=== PATIENT | female | born 1965 | race Asian ===

== ENCOUNTER 2021-04-12 19:59 | Emergency (ER) | payer BC ==
[2021-04-12 21:00] LABS: BILIRUBIN,URINE NEGATIVE (NEGATIVE); GLUCOSE, URINE (UA) NEGATIVE (NEGATIVE); KETONES,URINE (UA) NEGATIVE (NEGATIVE); LEUKOCYTE ESTERASE, URINE NEGATIVE (NEGATIVE); NITRITE,URINE NEGATIVE (NEGATIVE); OCCULT BLOOD,URINE TRACE-LYSE (NEGATIVE); PROTEIN,URINE NEGATIVE (NEGATIVE); UROBILINOGEN,URINE 0.2 (NORMAL) E.U./dL (NORMAL)
[2021-04-12 21:05] LABS: CLARITY,URINE CLEAR (CLEAR)
[2021-04-12] MEDS ORDERED: ONDANSETRON ODT 4 MG TABLET TL STA (22:31)
[2021-04-12 23:00] LABS: BASOPHILS % (AUTO) 0.4 %; EOSINOPHILS % (AUTO) 0.3 %; HCT - HEMATOCRIT 40.8 % (37.0-47.0); HGB - HEMOGLOBIN 13.6 g/dL (12.0-16.0); LYMPHOCYTES % (AUTO) 20.5 %; MEAN CORPUSCULAR HGB CONC 33.3 g/dL (32.0-36.0); MEAN PLATELET VOLUME 8.6 fL (7.9-10.8); MONOCYTES # (AUTO) 0.8 10^3/uL (0.0-1.0); MONOCYTES % (AUTO) 8.1 %; NEUTROPHILS # (AUTO) 6.8 10^3/uL (1.5-6.6); NEUTROPHILS % (AUTO) 70.3 %; PLT - PLATELET COUNT 281 10^3/uL (130-450); RED BLOOD COUNT 4.25 10^6/uL (4.20-5.40); RED CELL DISTRIBUTION WIDTH 12.5 % (12.0-15.0); WHITE BLOOD COUNT 9.6 x10^3/uL (4.8-10.8)
--- NOTE | 2021-04-12 23:09 | ED Physician Documentation ---
PD HPI NVD - Stated complaint Stated Complaint: VOMITING,DIZZY - Chief complaint Chief Complaint: Abd Pain - History obtained from History obtained from: Patient - History of Present Illness Timing - onset: Enter time (11:00), Today Timing - details: Gradual onset, Waxing and waning Pain level max: 8 Pain level now: 3 Associated symptoms: Abdominal pain Improved by: Other (no ameliorating factors) Worsened by: Other (PO intake) Similar symptoms before: Has not had sx before Recently seen: Not recently seen - Additonal information Additional information: c/o nausea, vomiting and epigastric burning pain since 11 AM today. she has h/o PUD (has had upper endoscopy), taking PPI on regular (daily) basis without adequate relief. she is tolerating PO Review of Systems Constitutional: denies: Fever, Chills, Sweats Cardiac: reports: Reviewed and negative Respiratory: reports: Reviewed and negative GI: reports: Abdominal Pain, Nausea, Vomiting. denies: Abdominal Swelling, Constipation, Diarrhea, Hematemesis, Bloody / black stool : denies: Dysuria, Frequency, Now EGA PD PAST MEDICAL HISTORY - Past Medical History Past Medical History: Yes GI: Ulcers - Past Surgical History Past Surgical History: No - Present Medications Home Medications: Ambulatory Orders Medication Instructions Recorded Confirmed Ondansetron Odt [Zofran Odt] 4 mg TL Q6H PRN #14 tablet 04/12/21 Sucralfate [Carafate] 1 gm PO ACHS #60 tablet 04/12/21 - Allergies Allergies/Adverse Reactions: Allergies Allergy/AdvReac Type Severity Reaction Status Date / Time No Known Drug Allergies Allergy Verified 04/12/21 20:38 - Social History Does the pt smoke?: No Smoking Status: Never smoker Does the pt drink ETOH?: No Does the pt have substance abuse?: No - POLST Patient has POLST: No PD ED PE NORMAL - Vitals Vital signs reviewed: Yes - General General: Alert and oriented X 3, No acute distress, Well developed/nourished - HEENT HEENT: Moist mucous membranes - Neck Neck: Supple, no meningeal sign - Cardiac Cardiac: RRR, No murmur - Respiratory Respiratory: No respiratory distress, Clear bilaterally - Abdomen Abdomen: Normal bowel sounds, Soft, Non tender, Non distended - Back Back: No CVA TTP - Derm Derm: Normal color, Warm and dry Results - Vitals Vitals: Vital Signs - 24 hr 04/12/21 04/12/21 04/12/21 20:30 22:07 23:38 Temperature 36.0 C L 97.6 C H Heart Rate 60 56 L 58 L Respiratory 18 18 16 Rate Blood Pressure 147/64 H 143/57 H 134/55 H O2 Saturation 98 98 98 Oxygen O2 Source Room air - Labs Labs: Laboratory Tests 04/12/21 04/12/21 04/12/21 20:48 22:52 22:52 WBC 9.6 RBC 4.25 Hgb 13.6 Hct 40.8 MCV 96.0 MCH 32.0 H MCHC 33.3 RDW 12.5 Plt Count 281 MPV 8.6 Neut # (Auto) 6.8 H Lymph # (Auto) 2.0 [place] # (Auto) 0.8 Eos # (Auto) 0.0 Baso # (Auto) 0.0 Absolute Nucleated RBC 0.00 Nucleated RBC % 0.0 Sodium 140 Potassium 3.8 Chloride 108 Carbon Dioxide 23 Anion Gap 9.0 BUN 23 H Creatinine 0.5 Estimated GFR (MDRD) 127 Glucose 145 H Calcium 9.7 Total Bilirubin 1.1 H AST 19 ALT 22 Alkaline Phosphatase 65 Total Protein 8.3 H Albumin 4.6 Globulin 3.7 Albumin/Globulin Ratio 1.2 Lipase 26 Urine Color YELLOW Urine Clarity CLEAR Urine pH 6.0 Ur Specific [place] 1.010 Urine Protein NEGATIVE Urine Glucose (UA) NEGATIVE Urine Ketones NEGATIVE Urine Occult Blood TRACE-LYSE Urine Nitrite NEGATIVE Urine Bilirubin NEGATIVE Urine Urobilinogen 0.2 (NORMAL) Ur Leukocyte Esterase NEGATIVE Ur Microscopic Review NOT INDICATED Urine Culture Comments NOT INDICATED PD MEDICAL DECISION MAKING - ED course Complexity details: reviewed results, re-evaluated patient, considered differential, d/w patient ED course: nausea and vomiting with epigastric burning discomfort but nontender on abdominal exam. afebrile and no findings on blood tests that are of emergent concern. she is given TL zofran and on reevaluation she reports resolution of the nausea. Further emergent testing is not indicated at this time, will rx zofran and add sucralfate to her regimen, instructed to return if worse, follow up with primary care provider next available appointment. suspect PUD vs gastri tis. doubt pancreatitis (no tenderness on exam, normal lipase), biliary colic (I performed bedside US, no abnormality of GB noted on my interpretation), renal colic (midline pain, no lateralized / flank pain). Departure - Departure Disposition: 01 Home, Self Care Clinical Impression: Abdominal pain with vomiting Condition: Good Instructions: ED Abdominal Pain Unkn Cause Prescriptions: Sucralfate [Carafate] 1 gm PO ACHS #60 tablet Ondansetron Odt [Zofran Odt] 4 mg TL Q6H PRN #14 tablet PRN Reason: Nausea / Vomiting Comments: Follow up with your primary care provider for reevaluation; further testing might be necessary at the discretion of your doctor Discharge Date/Time: 04/12/21 23:40
[2021-04-12 23:13] LABS: ALBUMIN 4.6 g/dL (3.2-5.5); ALBUMIN/GLOBULIN RATIO 1.2 (1.0-2.2); BILIRUBIN,TOTAL 1.1 mg/dL (0.2-1.0); CALCIUM 9.7 mg/dL (8.5-10.3); CREATININE 0.5 mg/dL (0.4-1.0); POTASSIUM 3.8 mmol/L (3.5-5.0); TOTAL PROTEIN 8.3 g/dL (6.7-8.2)
[2021-04-12 23:40] VITALS: BP 134/55
== END 2021-04-12 23:40 | disposition home or self-care (01) ==
LOC: ED 19:59
DX: R11.2 Nausea with vomiting, unspecified (principal); R10.13 Epigastric pain
CPT/HCPCS: 36415; 80053; 81003; 83690; 85025; 99283; 99284; Q0162; 81001; 87086

== ENCOUNTER 2021-11-10 10:52 | Emergency (ER) | payer MEDICAID, OTHER ==
[2021-11-10 11:13] LABS: BASOPHILS # (AUTO) 0.1 10^3/uL (0.0-0.1); BASOPHILS % (AUTO) 1.1 %; EOSINOPHILS # (AUTO) 0.4 10^3/uL (0.0-0.7); EOSINOPHILS % (AUTO) 7.4 %; HCT - HEMATOCRIT 40.7 % (37.0-47.0); HGB - HEMOGLOBIN 13.9 g/dL (12.0-16.0); LYMPHOCYTES # (AUTO) 2.2 10^3/uL (1.5-3.5); LYMPHOCYTES % (AUTO) 42.6 %; MEAN CORPUSCULAR HGB CONC 34.2 g/dL (32.0-36.0); MEAN CORPUSCULAR VOLUME 93.8 fL (81.0-99.0); MEAN PLATELET VOLUME 8.8 fL (7.9-10.8); MONOCYTES # (AUTO) 0.6 10^3/uL (0.0-1.0); MONOCYTES % (AUTO) 10.6 %; NEUTROPHILS % (AUTO) 38.1 %; PLT - PLATELET COUNT 258 10^3/uL (130-450); RED BLOOD COUNT 4.34 10^6/uL (4.20-5.40); RED CELL DISTRIBUTION WIDTH 12.3 % (12.0-15.0); WHITE BLOOD COUNT 5.3 x10^3/uL (4.8-10.8)
--- NOTE | 2021-11-10 11:37 | ED Physician Documentation ---
History of Present Illness - Stated complaint Stated Complaint: CHEST PAIN - Chief complaint Chief Complaint: Cardiac - Additonal information Additional information: 56-year-old female presents emergency department for evaluation of chest pain. Reportedly began about 9 days ago. She does report some radiation of this pain to her left arm. She denies any cough, fevers. No nausea or vomiting. Patient endorses that the chest pain can occur at rest such as when she is sitting in the car but it is often exacerbated by activity such as doing grocery shopping or walking. It does improve with rest. Patient does have a history of diabetes as well as hypertension. Last A1c 12.3. Patient takes her Lantus daily but does not check her sugars. No tobacco use. No previous cardiac history. Patient initially presented to an outside clinic this a.m. for her chest pain. While there she received 325 of aspirin and was advised to come to the ER. Review of Systems Constitutional: denies: Fever, Chills Eyes: reports: Reviewed and negative Ears: reports: Reviewed and negative Cardiac: reports: Chest pain / pressure. denies: Palpitations, Pedal edema, Calf pain Respiratory: denies: Dyspnea, Cough, Hemoptysis, Wheezing GI: reports: Nausea. denies: Abdominal Pain, Vomiting, Constipation, Hematemesis : denies: Dysuria, Frequency, Hesitancy Skin: reports: Reviewed and negative Musculoskeletal: reports: Reviewed and negative PD PAST MEDICAL HISTORY - Past Medical History Past Medical History: Yes GI: Ulcers - Past Surgical History Past Surgical History: No - Present Medications Home Medications: Ambulatory Orders Medication Instructions Recorded Confirmed Insulin Aspart [NovoLOG] 18 units SQ TID 11/10/21 11/10/21 Insulin Glargine,Hum.rec.anlog 45 unit SUBQ DAILY PM 11/10/21 11/10/21 [Basaglar Kwikpen U-100] Lisinopril [Zestril] 20 mg PO DAILY 11/10/21 11/10/21 Propranolol [Inderal] 40 mg PO DAILY 11/10/21 11/10/21 Rosuvastatin Calcium [Crestor] 20 mg PO DAILY 11/10/21 11/10/21 - Allergies Allergies/Adverse Reactions: Allergies Allergy/AdvReac Type Severity Reaction Status Date / Time No Known Drug Allergies Allergy Verified 11/10/21 11:05 - Social History Does the pt smoke?: No Smoking Status: Never smoker Does the pt drink ETOH?: No Does the pt have substance abuse?: No - POLST Patient has POLST: No PD ED PE NORMAL - General General: Alert and oriented X 3, No acute distress - HEENT HEENT: PERRL - Neck Neck: Supple, no meningeal sign, No adenopathy - Cardiac Cardiac: RRR, No murmur, No gallop - Respiratory Respiratory: No respiratory distress, Clear bilaterally - Abdomen Abdomen: Normal bowel sounds, Soft, Non tender, Non distended - Derm Derm: Normal color, Warm and dry, No rash - Extremities Extremities: No deformity - Neuro Neuro: Alert and oriented X 3, community relations advisor 2-12 intact Eye Opening: Spontaneous Motor: Obeys Commands Verbal: Oriented GCS Score: 15 Results - Vitals Vitals: Vital Signs - 24 hr 11/10/21 11/10/21 11/10/21 10:56 11:07 13:04 Temperature 36.2 C L Heart Rate 63 58 L 73 Respiratory 16 20 20 Rate Blood Pressure 156/81 H 166/140 H 147/70 H O2 Saturation 99 97 99 11/10/21 11/10/21 11/10/21 15:00 17:00 19:00 Temperature Heart Rate 54 L 66 62 Respiratory 12 24 18 Rate Blood Pressure 130/88 H 137/62 H 126/71 O2 Saturation 97 97 94 Oxygen O2 Source Room air - EKG (time done) 1058 Rate: Rate (enter#) (56) Rhythm: NSR [place]: Normal Intervals: Normal IN QRS: Normal Ischemia: Non specific changes (T wave flattening inferiorly) Compare to prior EKG: Old EKG unavailable Computer interpretation: Agree with computer - Labs Labs: Laboratory Tests 11/10/21 11/10/21 11/10/21 11:02 11:02 11:02 WBC 5.3 RBC 4.34 Hgb 13.9 Hct 40.7 MCV 93.8 MCH 32.0 H MCHC 34.2 RDW 12.3 Plt Count 258 MPV 8.8 Neut # (Auto) 2.0 Lymph # (Auto) 2.2 [place] # (Auto) 0.6 Eos # (Auto) 0.4 Baso # (Auto) 0.1 Absolute Nucleated RBC 0.00 Nucleated RBC % 0.0 APTT Sodium 134 L Potassium 3.9 Chloride 102 Carbon Dioxide 21 Anion Gap 11.0 BUN 17 Creatinine 0.6 Estimated GFR (MDRD) 103 Glucose 287 H Calcium 8.7 Total Bilirubin 0.9 AST 21 ALT 21 Alkaline Phosphatase 99 Troponin I High Sens 7.3 Total Protein 7.7 Albumin 4.2 Globulin 3.5 Albumin/Globulin Ratio 1.2 Lipase 96 H Nasal Adenovirus (PCR) Nasal B. parapertussis DNA (PCR) Nasal Coronavir 229E PCR Nasal Coronavir HKU1 PCR Nasal Coronavir NL63 PCR Nasal Coronavir OC43 PCR Nasal Enterovir/Rhinovir PCR Nasal Influenza B PCR Nasal Influenza A PCR Nasal Parainfluen 1 PCR Nasal Parainfluen 2 PCR Nasal Parainfluen 3 PCR Nasal Parainfluen 4 PCR Nasal RSV (PCR) Nasal B.pertussis DNA PCR Nasal C.pneumoniae (PCR) Johnie Human Metapneumo PCR Nasal M.pneumoniae (PCR) Nasal SARS-CoV-2 (PCR) 11/10/21 11/10/21 16:45 19:02 WBC RBC Hgb Hct MCV MCH MCHC RDW Plt Count MPV Neut # (Auto) Lymph # (Auto) [place] # (Auto) Eos # (Auto) Baso # (Auto) Absolute Nucleated RBC Nucleated RBC % APTT 166.0 H* Sodium Potassium Chloride Carbon Dioxide Anion Gap BUN Creatinine Estimated GFR (MDRD) Glucose Calcium Total Bilirubin AST ALT Alkaline Phosphatase Troponin I High Sens Total Protein Albumin Globulin Albumin/Globulin Ratio Lipase Nasal Adenovirus (PCR) NOT DETECTED Nasal B. parapertussis DNA (PCR) NOT DETECTED Nasal Coronavir 229E PCR NOT DETECTED Nasal Coronavir HKU1 PCR NOT DETECTED Nasal Coronavir NL63 PCR NOT DETECTED Nasal Coronavir OC43 PCR NOT DETECTED Nasal Enterovir/Rhinovir PCR NOT DETECTED Nasal Influenza B PCR NOT DETECTED Nasal Influenza A PCR NOT DETECTED Nasal Parainfluen 1 PCR NOT DETECTED Nasal Parainfluen 2 PCR NOT DETECTED Nasal Parainfluen 3 PCR NOT DETECTED Nasal Parainfluen 4 PCR NOT DETECTED Nasal RSV (PCR) NOT DETECTED Nasal B.pertussis DNA PCR NOT DETECTED Nasal C.pneumoniae (PCR) NOT DETECTED Johnie Human Metapneumo PCR NOT DETECTED Nasal M.pneumoniae (PCR) NOT DETECTED Nasal SARS-CoV-2 (PCR) NOT DETECTED - Rads (name of study) cxr Radiology: Critical result, EMP read contemporaneously (No acute cardiopulmonary process) PD MEDICAL DECISION MAKING - ED course Complexity details: reviewed results, re-evaluated patient, considered differential, d/w patient ED course: 56-year-old female has a history of hypertension, diabetes and hyperlipidemia presents the emergency department for evaluation of 9 days chest pain. She does describe exertional chest pain that improves with rest. She is a poorly controlled diabetic with last A1c of 12.3. She has never established with a accounting system expert. But does not smoke. Here in the emergency department she is noted to be moderately hypertensive blood pressure in the 160s and 170s. Her screening EKG is nonischemic though there is some T wave flattening in the inferior leads. Initial troponin is negative. Chest x-ray without acute focal opacity. However given the nature of her chest pain, multiple risk factors and a heart score of 4 she is at major risk for adverse cardiac event. Hx is suggestive of unstable angina. I will reach out to cardiology to discuss the possibility of transfer for earlier cardiac evaluation/catheterization. 1250: Spoke with on-call accounting system expert Dr. Dick at [facility]. We discussed the patient's clinical presentation and she agrees that the history is consistent with unstable angina in a patient that has multiple risk factors for coronary artery disease. She feels that the patient is not safe for discharge home and should have a cardiac catheterization before this occurs. Patient will be started on a heparin infusion. We have confirmed with [facility] that she is on their list for transfer when a bed is available. I have communicated this with the patient and she is in agreement to transfer for further evaluation of her unstable angina. 1600: I spoke with [facility] unfortunately they are not able to accommodate this patient in transfer. [facility] has no beds. Patient will continue to board here overnight pending bed acceptance likely at [facility]. Patient will be signed out to my nighttime colleague Dr. Escobar to follow-up on transfer when a bed becomes available. She remains on a heparin infusion. Departure - Departure Disposition: 02 Transfer Acute Care Hosp Clinical Impression: Unstable angina
[2021-11-10 11:40] LABS: ALBUMIN 4.2 g/dL (3.2-5.5); ALBUMIN/GLOBULIN RATIO 1.2 (1.0-2.2); BILIRUBIN,TOTAL 0.9 mg/dL (0.2-1.0); CALCIUM 8.7 mg/dL (8.5-10.3); CREATININE 0.6 mg/dL (0.4-1.0); POTASSIUM 3.9 mmol/L (3.5-5.0); TOTAL PROTEIN 7.7 g/dL (6.7-8.2)
--- NOTE | 2021-11-10 12:23 | XRAY Report ---
PROCEDURE: Chest 1 View X-Ray INDICATIONS: Chest pain TECHNIQUE: One view of the chest was acquired. COMPARISON: None. FINDINGS: Surgical changes and devices: None. Lungs and pleura: No pleural effusions or pneumothorax. Lungs are clear. Mediastinum: Mediastinal contours appear normal. Heart size is normal. Bones and chest wall: No suspicious bony lesions. Overlying soft tissues appear unremarkable. IMPRESSION: No acute cardiopulmonary abnormality. Reviewed by: Mike Burrows MD on 11/10/2021 11:22 AM [facility] Approved by: Mike Burrows MD on 11/10/2021 11:22 AM [facility] Station ID: [id number]
[2021-11-10] MEDS ORDERED: HEPARIN 25000UNITS/500ML (D5W) 25,000 UNIT/500 ML BAG IV SCH (13:00)
[2021-11-10] MEDS ORDERED: ATORVASTATIN 40 MG TABLET PO STA (13:02)
[2021-11-10 17:46] LABS: B. PARAPERTUSSIS- RESP PCR PAN NOT DETECTED; B. PERTUSSIS- RESP PCR PANEL NOT DETECTED; C. PNEUMONIAE- RESP PCR PANEL NOT DETECTED; CORONAVIRUS 229E-RESP PCR NOT DETECTED; CORONAVIRUS HKU1-RESP PCR NOT DETECTED; CORONAVIRUS NL63-RESP PCR NOT DETECTED; CORONAVIRUS OC43-RESP PCR NOT DETECTED; HUMAN METAPNEUMOVIRUS NOT DETECTED; INFLUENZA A- RESP PCR PANEL NOT DETECTED; INFLUENZA B - RESP PCR PANEL NOT DETECTED; M. PNEUMONIAE- RESP PCR PANEL NOT DETECTED; PARAINFLUENZA VIRUS 1 NOT DETECTED; PARAINFLUENZA VIRUS 2 NOT DETECTED; PARAINFLUENZA VIRUS 3 NOT DETECTED; PARAINFLUENZA VIRUS 4 NOT DETECTED; RHINOVIRUS/ENTEROVIRUS NOT DETECTED; RSV- RESP PCR PANEL NOT DETECTED; SARS-CoV-2 -RESP PCR PANEL NOT DETECTED
[2021-11-10 21:18] VITALS: BP 131/71
--- NOTE | 2021-11-27 21:31 | ED Physician Documentation ---
ED Addendum - Addendum Addendum: 11/27/21 21:29 Received sign out from XIN Valderrama. Patient is awaiting transfer to [facility] at end of her shift. As per XIN Valderrama's addendum, patient had already been accepted and COBRA forms filled out prior to ending of XIN Valderrama's shift; thus, patient was in ED briefly during my shift before being transferred and there were no events or problems in the time between end of XIN Valderrama's shift and when patient was transferred to [facility].
== END 2021-11-10 22:55 | disposition short-term general hospital (02) ==
LOC: ED 10:52
DX: I20.0 Unstable angina (principal); E11.9 Type 2 diabetes mellitus without complications; Z79.4 Long term (current) use of insulin; I10 Essential (primary) hypertension; Z20.822 Contact with and (suspected) exposure to COVID-19
CPT/HCPCS: 0202U; 36415; 71045; 80053; 83690; 84484; 85025; 85730; 93005; 96365; 96366; 96376; 99284; 99285; A9270

== ENCOUNTER 2021-12-01 10:49 | Outpatient (CLI) | payer MEDICAID ==
[2021-12-01 14:14] LABS: BASOPHILS # (AUTO) 0.1 10^3/uL (0.0-0.1); EOSINOPHILS # (AUTO) 0.5 10^3/uL (0.0-0.7); EOSINOPHILS % (AUTO) 8.2 %; HGB - HEMOGLOBIN 13.3 g/dL (12.0-16.0); LYMPHOCYTES # (AUTO) 2.4 10^3/uL (1.5-3.5); LYMPHOCYTES % (AUTO) 39.3 %; MEAN CORPUSCULAR HGB CONC 34.1 g/dL (32.0-36.0); MEAN CORPUSCULAR VOLUME 93.8 fL (81.0-99.0); MEAN PLATELET VOLUME 9.1 fL (7.9-10.8); MONOCYTES # (AUTO) 0.6 10^3/uL (0.0-1.0); MONOCYTES % (AUTO) 9.7 %; NEUTROPHILS # (AUTO) 2.5 10^3/uL (1.5-6.6); NEUTROPHILS % (AUTO) 41.6 %; PLT - PLATELET COUNT 273 10^3/uL (130-450); RED BLOOD COUNT 4.16 10^6/uL (4.20-5.40); RED CELL DISTRIBUTION WIDTH 12.2 % (12.0-15.0)
[2021-12-01 14:23] LABS: CREATININE,URINE 63.7 mg/dL; MICROALBUM/CREATININE RATIO,UR 18.8 ug/mg (<30.0); MICROALBUMIN,URINE 1.2 mg/dL (0-300.0)
[2021-12-01 14:37] LABS: ALBUMIN 4.1 g/dL (3.2-5.5); ALBUMIN/GLOBULIN RATIO 1.2 (1.0-2.2); ALKALINE PHOSPHATASE 105 IU/L (42-121); ALT ALANINE AMINOTRANSFERASE 25 IU/L (10-60); AST ASPARTATE AMINOTRANSFERASE 21 IU/L (10-42); BILIRUBIN,TOTAL 0.8 mg/dL (0.2-1.0); BUN - BLOOD UREA NITROGEN 19 mg/dL (6-20); CALCIUM 9.2 mg/dL (8.5-10.3); CARBON DIOXIDE - CO2 25 mmol/L (21-32); CHLORIDE 101 mmol/L (101-111); CHOL/HDL RATIO 3.2 (<4.4); CHOLESTEROL 155 mg/dL; CREATININE 0.6 mg/dL (0.4-1.0); GFR - MDRD 103 (>89); GLUCOSE 323 mg/dL (70-100); HDL CHOLESTEROL 49 mg/dL; LDL CHOLESTEROL,CALCULATED 49 mg/dL; POTASSIUM 4.3 mmol/L (3.5-5.0); SODIUM 136 mmol/L (135-145); TOTAL PROTEIN 7.6 g/dL (6.7-8.2); TRIGLYCERIDES 287 mg/dL; VLDL CHOLESTEROL 57 mg/dL
[2021-12-01 14:50] LABS: ESTIMATED AVERAGE GLUCOSE 280 mg/dL (70-100); HEMOGLOBIN A1c% 11.4 % (4.27-6.07)
[2021-12-01 15:01] LABS: THYROID STIMULATING HORMONE 0.01 uIU/mL (0.34-5.60)
[2021-12-01 15:50] LABS: FREE T4 (FREE THYROXINE) 1.51 ng/dL (0.58-1.64)
== END 2021-12-01 10:50 | disposition home or self-care (01) ==
LOC: LAB.N 10:49
PROVIDERS: ATTEND Registered Nurse
DX: I10 Essential (primary) hypertension (principal); E11.9 Type 2 diabetes mellitus without complications
CPT/HCPCS: 36415; 80053; 80061; 82043; 82570; 83036; 83721; 84439; 84443; 85025

== ENCOUNTER 2021-12-24 09:13 | Outpatient (CLI) | payer MEDICAID | END 2021-12-24 09:14 | disposition home or self-care (01) | LOC: LAB.N 09:13 | PROVIDERS: ATTEND Surgery | DX: Z01.812 Encounter for preprocedural laboratory examination (principal); K21.9 Gastro-esophageal reflux disease without esophagitis; K27.9 Peptic ulcer, site unspecified, unspecified as acute or chronic, without hemorrhage or perforation; E11.9 Type 2 diabetes mellitus without complications; Z20.822 Contact with and (suspected) exposure to COVID-19 ==

== ENCOUNTER 2021-12-25 07:52 | Day surgery (SDC) | payer MEDICAID ==
[2021-12-25] MEDS ORDERED: LACTATED RINGERS 1,000 ML IV ONE ×2 (08:19→09:29)
--- NOTE | 2021-12-25 08:36 | ANESTHESIA ---
Pre-Anesthesia VS, & Labs - Diagnosis hx PUD, GERD - Procedure EGD Vital Signs: Temp Pulse Resp BP Pulse Ox 36.2 C L 52 L 20 142/65 H 96 12/25/21 08:08 12/25/21 08:08 12/25/21 08:08 12/25/21 08:08 12/25/21 08:08 Height: 5 ft Weight (kg): 69.8 kg Body Mass Index: 30.0 BMI Classification: Obese - NPO >8 hours - Is Patient ?: No - Lab Results Lab results reviewed: Yes Home Medications and Allergies Home Medications: Ambulatory Orders Aspirin [[place] Aspirin EC] 81 mg PO DAILY 12/19/21 Empagliflozin [Jardiance] 10 mg PO DAILY 12/19/21 Insulin Aspart [NovoLOG] 18 units SQ TID 11/10/21 Insulin Glargine,Hum.rec.anlog [Basaglar Kwikpen U-100] 45 unit SUBQ DAILY PM 11/10/21 Lisinopril [Zestril] 20 mg PO DAILY 11/10/21 Propranolol [Inderal] 40 mg PO DAILY 11/10/21 Rosuvastatin Calcium [Crestor] 20 mg PO DAILY 11/10/21 Aspirin [[place] Aspirin EC] 81 mg PO DAILY 12/19/21 Empagliflozin [Jardiance] 10 mg PO DAILY 12/19/21 Allergies/Adverse Reactions: Allergies Allergy/AdvReac Type Severity Reaction Status Date / Time No Known Drug Allergies Allergy Verified 11/10/21 11:05 Anes History & Medical History - Anesthetic History Anesthesia Complications: reports: No previous complications Family history of Anesthesia Complications: Denies Family history of Malignant Hyperthermia: Denies - Medical History Cardiovascular: reports: Hypertension, High cholesterol Gastrointestinal: reports: GERD, Ulcers Smoking Status: Never smoker History of Cancer?: No - Surgical History General: reports: EGD Exam General: Alert, Oriented x3, Cooperative Dental: Dentures full Upper, Other Mouth Openin Fingerbreadth Neck Mobility: Normal Mallampati classification: II Thyromental Distance: 4-6 cm Respiratory: Lungs clear, Normal breath sounds, No respiratory distress Cardiovascular: Regular rate (christina @55 tele) Neurological: Normal speech Mental/Cognitive Status: Alert/Oriented X3, Normal for patient Cognitive Status: Within normal limits Plan Anesthesia Type: Total IV Consent for Procedure(s) Verified and Reviewed: Yes Code Status: Attempt Resuscitation ASA classification: 2-Mild systemic disease Is this case an emergency?: No
[2021-12-25] MEDS ORDERED: PROPOFOL 500 MG/50 ML 0 MG/0 ML VIAL ONE (09:06)
[2021-12-25] MEDS ORDERED: PROPOFOL 200 MG/20 ML VIAL IVP ONE (09:13)
[2021-12-25] MEDS ORDERED: LIDOCAINE-MPF 2% 5 ML VIAL ONE (09:13)
--- NOTE | 2021-12-25 10:12 | ANESTHESIA POST OP EVALUATION ---
Anesthesia Post Eval - Post Anesthesia Eval Vitals: Last Vital Signs Temp 36.6 C 12/25/21 10:00 Pulse 58 L 12/25/21 10:00 Resp 16 12/25/21 10:00 BP 126/71 12/25/21 10:00 Pulse Ox 99 12/25/21 10:00 CV Function Including HR & BP: Stable Pain Control: Satisfactory Nausea & Vomiting: Negative Mental Status: Baseline Respiratory Status: Airway Patent Hydration Status: Satisfactory Anesthesia Complications: None
[2021-12-25 10:17] VITALS: BP 136/74
== END 2021-12-25 07:53 | disposition home or self-care (01) ==
LOC: SDS 07:52
PROVIDERS: ATTEND Surgery
PROC: 0DB78ZZ Excision of Stomach, Pylorus, Via Natural or Artificial Opening Endoscopic (ICD-10-PCS; 2021-12-25)
PROC: 0DB38ZZ Excision of Lower Esophagus, Via Natural or Artificial Opening Endoscopic (ICD-10-PCS; 2021-12-25)
PROC: 0DB98ZZ Excision of Duodenum, Via Natural or Artificial Opening Endoscopic (ICD-10-PCS; principal; 2021-12-25 09:15)
DX: K21.9 Gastro-esophageal reflux disease without esophagitis (principal); K20.90 Esophagitis, unspecified without bleeding; K25.9 Gastric ulcer, unspecified as acute or chronic, without hemorrhage or perforation; I10 Essential (primary) hypertension; E11.9 Type 2 diabetes mellitus without complications; E66.9 Obesity, unspecified; Z68.30 Body mass index [BMI] 30.0-30.9, adult; Z79.4 Long term (current) use of insulin; Z79.84 Long term (current) use of oral hypoglycemic drugs; Z87.11 Personal history of peptic ulcer disease
CPT/HCPCS: 43239; J7120

== ENCOUNTER 2022-02-15 13:19 | Emergency (ER) | payer MEDICAID ==
--- NOTE | 2022-02-15 14:02 | XRAY Report ---
PROCEDURE: Chest 1 View X-Ray INDICATIONS: Chest Pain TECHNIQUE: One view of the chest was acquired. COMPARISON: None FINDINGS: Surgical changes and devices: None. Lungs and pleura: No pleural effusions or pneumothorax. Lungs are clear. Mediastinum: Mediastinal contours appear normal. Heart size is normal. Bones and chest wall: No suspicious bony lesions. Overlying soft tissues appear unremarkable. IMPRESSION: No acute cardiopulmonary findings Reviewed by: Alex Escalera MD on 02/15/2022 1:01 PM [facility] Approved by: Alex Escalera MD on 02/15/2022 1:01 PM [facility] Station ID: [id number]
[2022-02-15 14:14] LABS: BASOPHILS # (AUTO) 0.1 10^3/uL (0.0-0.1); BASOPHILS % (AUTO) 1.1 %; EOSINOPHILS # (AUTO) 0.4 10^3/uL (0.0-0.7); EOSINOPHILS % (AUTO) 6.3 %; HCT - HEMATOCRIT 41.7 % (37.0-47.0); HGB - HEMOGLOBIN 14.1 g/dL (12.0-16.0); LYMPHOCYTES # (AUTO) 2.6 10^3/uL (1.5-3.5); LYMPHOCYTES % (AUTO) 40.3 %; MEAN CORPUSCULAR HGB CONC 33.8 g/dL (32.0-36.0); MEAN CORPUSCULAR VOLUME 94.8 fL (81.0-99.0); MEAN PLATELET VOLUME 8.8 fL (7.9-10.8); MONOCYTES # (AUTO) 0.7 10^3/uL (0.0-1.0); MONOCYTES % (AUTO) 10.3 %; NEUTROPHILS # (AUTO) 2.6 10^3/uL (1.5-6.6); NEUTROPHILS % (AUTO) 41.8 %; PLT - PLATELET COUNT 260 10^3/uL (130-450); RED CELL DISTRIBUTION WIDTH 12.3 % (12.0-15.0); WHITE BLOOD COUNT 6.3 x10^3/uL (4.8-10.8)
[2022-02-15 14:30] LABS: ALBUMIN 4.4 g/dL (3.2-5.5); BILIRUBIN,TOTAL 0.6 mg/dL (0.2-1.0); CALCIUM 9.8 mg/dL (8.5-10.3); CREATININE 0.5 mg/dL (0.4-1.0); POTASSIUM 4.1 mmol/L (3.5-5.0); TOTAL PROTEIN 8.6 g/dL (6.7-8.2)
--- NOTE | 2022-02-15 15:08 | ED Physician Documentation ---
History of Present Illness - Stated complaint Stated Complaint: SHORTNESS OF BREATH - Chief complaint Chief Complaint: Resp - Additonal information Additional information: 56-year-old female presents emergency department for evaluation of what she describes as shortness of air. This has been an ongoing problem for a number of weeks. She denies that she is having any chest pain or chest discomfort. No cough, no fevers. She denies any leg swelling nausea vomiting. No syncopal episodes. She was transferred to [facility] in late October for unstable angina. Past medical history: Hypertension, diabetes, angina Meds: NovoLog, glargine, lisinopril, propanolol, Jardiance. Review of Systems Constitutional: denies: Fever, Chills Throat: reports: Reviewed and negative Cardiac: reports: Reviewed and negative Respiratory: reports: Dyspnea. denies: Cough, Hemoptysis, Wheezing GI: reports: Reviewed and negative : reports: Reviewed and negative Skin: reports: Reviewed and negative Musculoskeletal: reports: Reviewed and negative PD PAST MEDICAL HISTORY - Past Medical History Past Medical History: Yes Cardiovascular: Hypertension, High cholesterol GI: GERD, Ulcers - Past Surgical History Past Surgical History: Yes General: EGD - Present Medications Home Medications: Ambulatory Orders Medication Instructions Recorded Confirmed Insulin Aspart [NovoLOG] 18 units SQ TID 11/10/21 12/25/21 Insulin Glargine,Hum.rec.anlog 45 unit SUBQ DAILY PM 11/10/21 12/25/21 [Basaglar Kwikpen U-100] Lisinopril [Zestril] 20 mg PO DAILY 11/10/21 12/19/21 Propranolol [Inderal] 40 mg PO DAILY 11/10/21 12/25/21 Rosuvastatin Calcium [Crestor] 20 mg PO DAILY 11/10/21 12/25/21 Aspirin [[place] Aspirin EC] 81 mg PO DAILY 12/19/21 12/25/21 Empagliflozin [Jardiance] 10 mg PO DAILY 12/19/21 12/25/21 - Allergies Allergies/Adverse Reactions: Allergies Allergy/AdvReac Type Severity Reaction Status Date / Time No Known Drug Allergies Allergy Verified 11/10/21 11:05 - Social History Does the pt smoke?: No Smoking Status: Never smoker Does the pt drink ETOH?: No Does the pt have substance abuse?: No - POLST Patient has POLST: No PD ED PE NORMAL - General General: Alert and oriented X 3, No acute distress, Well developed/nourished - HEENT HEENT: Atraumatic, Moist mucous membranes, Pharynx benign - Neck Neck: Supple, no meningeal sign, No adenopathy, No JVD - Cardiac Cardiac: RRR, No murmur - Respiratory Respiratory: No respiratory distress, Clear bilaterally - Abdomen Abdomen: Normal bowel sounds, Soft, Non tender - Back Back: No CVA TTP, No spinal TTP - Derm Derm: Normal color, Warm and dry, No rash - Extremities Extremities: No deformity, No tenderness to palpate, Normal ROM s pain - Neuro Neuro: Alert and oriented X 3, dispatcher chief coal slurry 2-12 intact Eye Opening: Spontaneous Motor: Obeys Commands Verbal: Oriented GCS Score: 15 Results - Vitals Vitals: Vital Signs - 24 hr 02/15/22 13:30 Temperature 36.2 C L Heart Rate 56 L Respiratory 18 Rate Blood Pressure 150/91 H O2 Saturation 99 Oxygen O2 Source Room air - EKG (time done) 1335 Rate: Rate (enter#) (50) Rhythm: NSR [place]: Normal Intervals: Normal [place] QRS: Normal Ischemia: Normal ST segments Compare to prior EKG: Unchanged from prior EKG Computer interpretation: Agree with computer - Labs Labs: Laboratory Tests 02/15/22 02/15/22 02/15/22 14:09 14:09 14:09 WBC 6.3 RBC 4.40 Hgb 14.1 Hct 41.7 MCV 94.8 MCH 32.0 H MCHC 33.8 RDW 12.3 Plt Count 260 MPV 8.8 Neut # (Auto) 2.6 Lymph # (Auto) 2.6 [place] # (Auto) 0.7 Eos # (Auto) 0.4 Baso # (Auto) 0.1 Absolute Nucleated RBC 0.00 Nucleated RBC % 0.0 Sodium 141 Potassium 4.1 Chloride 104 Carbon Dioxide 25 Anion Gap 12.0 BUN 18 Creatinine 0.5 Estimated GFR (MDRD) 127 Glucose 126 H Calcium 9.8 Total Bilirubin 0.6 AST 21 ALT 21 Alkaline Phosphatase 79 Troponin I High Sens 7.8 Total Protein 8.6 H Albumin 4.4 Globulin 4.2 Albumin/Globulin Ratio 1.0 Lipase 134 H - Rads (name of study) cxr Radiology: Final report received (No acute process) PD MEDICAL DECISION MAKING - ED course Complexity details: reviewed results, re-evaluated patient, considered differential, d/w patient ED course: 56-year-old female presents emergency department with chief complaint of shortness of air for the last few weeks. She denies any chest pain. She has no leg swelling no cough or fever. On room air she is not hypoxic. She was transferred to [facility] in late October for angina. She has been compliant with her medications since then. Clinically she does not appear to have any heart failure. Chest x-ray is unremarkable. No crackles, no leg swelling normal renal function. Wells criteria is rather low for suspicion of PE. Therefore defer D-dimer. Screening EKG and troponin are also negative. I discussed these findings with the patient. She will be calling her cardiology office to arrange follow-up. She may benefit from repeat echocardiogram. Otherwise she is stable and feels ready for discharge home Departure - Departure Disposition: Home, Self Care Clinical Impression: Dyspnea Qualifiers: Dyspnea type: unspecified Qualified Code(s): R06.00 - Dyspnea, unspecified Condition: Stable Record reviewed to determine appropriate education?: Yes Comments: Stephan you were seen today in the emergency department for some shortness of air over the last few weeks. Today your screening chest x-ray, EKG and labs are all essentially normal. You do not have any signs of heart failure or having a heart attack. It is important that you continue to follow-up with your primary care provider as well as your lighting engineer. You would benefit from having a repeat echocardiogram. If at any point you develop fevers, have cough, severe shortness of air or leg swelling then please return to the ER for second evaluation
[2022-02-15 15:32] VITALS: BP 118/64
== END 2022-02-15 15:36 | disposition home or self-care (01) ==
LOC: ED 13:19
DX: R06.09 Other forms of dyspnea (principal); I10 Essential (primary) hypertension; E11.9 Type 2 diabetes mellitus without complications; Z79.4 Long term (current) use of insulin
CPT/HCPCS: 36415; 80053; 83690; 84484; 85025; 93005; 99283; 99284

== ENCOUNTER 2022-03-02 10:47 | Outpatient (CLI) | payer MEDICAID ==
[2022-03-02 19:34] LABS: CREATININE,URINE 53.8 mg/dL; MICROALBUM/CREATININE RATIO,UR 9.3 ug/mg (<30.0); MICROALBUMIN,URINE 0.5 mg/dL (0-300.0)
[2022-03-02 21:52] LABS: ESTIMATED AVERAGE GLUCOSE 200 mg/dL (70-100); HEMOGLOBIN A1c% 8.6 % (4.27-6.07)
== END 2022-03-02 10:48 | disposition home or self-care (01) ==
LOC: LAB.N 10:47
PROVIDERS: ATTEND Nurse Practitioner
DX: E11.65 Type 2 diabetes mellitus with hyperglycemia (principal)
CPT/HCPCS: 36415; 82043; 82570; 83036

== ENCOUNTER 2022-08-23 10:11 | Emergency (ER) | payer MEDICAID ==
[2022-08-23] MEDS ORDERED: ONDANSETRON ODT 4 MG TABLET TL STA (10:28)
[2022-08-23 10:42] LABS: BASOPHILS % (AUTO) 0.7 %; EOSINOPHILS # (AUTO) 0.1 10^3/uL (0.0-0.7); EOSINOPHILS % (AUTO) 2.4 %; HCT - HEMATOCRIT 39.2 % (37.0-47.0); HGB - HEMOGLOBIN 12.6 g/dL (12.0-16.0); LYMPHOCYTES # (AUTO) 1.8 10^3/uL (1.5-3.5); LYMPHOCYTES % (AUTO) 29.7 %; MEAN CORPUSCULAR HEMOGLOBIN 30.4 pg (27.0-31.0); MEAN CORPUSCULAR HGB CONC 32.1 g/dL (32.0-36.0); MEAN CORPUSCULAR VOLUME 94.5 fL (81.0-99.0); MEAN PLATELET VOLUME 8.6 fL (7.9-10.8); MONOCYTES # (AUTO) 0.4 10^3/uL (0.0-1.0); MONOCYTES % (AUTO) 7.4 %; NEUTROPHILS # (AUTO) 3.5 10^3/uL (1.5-6.6); NEUTROPHILS % (AUTO) 59.5 %; PLT - PLATELET COUNT 266 10^3/uL (130-450); RED BLOOD COUNT 4.15 10^6/uL (4.20-5.40); RED CELL DISTRIBUTION WIDTH 12.9 % (12.0-15.0); WHITE BLOOD COUNT 5.9 x10^3/uL (4.8-10.8)
[2022-08-23 10:56] LABS: ALBUMIN 4.2 g/dL (3.2-5.5); ALBUMIN/GLOBULIN RATIO 1.1 (1.0-2.2); BILIRUBIN,TOTAL 0.9 mg/dL (0.2-1.0); CALCIUM 8.8 mg/dL (8.5-10.3); CREATININE 0.5 mg/dL (0.4-1.0); POTASSIUM 4.1 mmol/L (3.5-5.0)
[2022-08-23] MEDS ORDERED: SODIUM CHLORIDE 0.9% 1,000 ML IV STA (11:52)
[2022-08-23] MEDS ORDERED: MECLIZINE 12.5 MG TABLET PO STA (11:59)
[2022-08-23] MEDS ORDERED: PROCHLORPERAZINE 10 MG/2 ML VIAL IVP STA (12:00)
--- NOTE | 2022-08-23 12:02 | ED Physician Documentation ---
History of Present Illness - Stated complaint Stated Complaint: VOMITING/DIZZY/COUGH - Chief complaint Chief Complaint: Abd Pain - Additonal information Additional information: 57-year-old diabetic female presents to the emergency department for evaluation of cough nausea vomiting and feeling dizzy and off balance. Symptoms began yesterday afternoon. She denies fever, chest pain or shortness of air. No syncope. No diplopia. Patient does have a history of diabetes. She has a CGM in place but has not checked her sugars. dizziness is worse with turning head and seems to improve once fixated on object. Normal gait Review of Systems Constitutional: denies: Fever, Chills Eyes: reports: Reviewed and negative Cardiac: reports: Reviewed and negative Respiratory: reports: Reviewed and negative GI: reports: Reviewed and negative : reports: Reviewed and negative Neurologic: reports: Other (Dizzy). denies: Syncope, Seizure, Confused, Headache, LOC PD PAST MEDICAL HISTORY - Past Medical History Cardiovascular: Hypertension, High cholesterol GI: GERD, Ulcers - Past Surgical History Past Surgical History: Yes General: EGD - Present Medications Home Medications: Ambulatory Orders Medication Instructions Recorded Confirmed Insulin Aspart [NovoLOG] 18 units SQ TID 11/10/21 12/25/21 Insulin Glargine,Hum.rec.anlog 45 unit SUBQ DAILY PM 11/10/21 12/25/21 [Basaglar Kwikpen U-100] Lisinopril [Zestril] 20 mg PO DAILY 11/10/21 12/19/21 Propranolol [Inderal] 40 mg PO DAILY 11/10/21 12/25/21 Rosuvastatin Calcium [Crestor] 20 mg PO DAILY 11/10/21 12/25/21 Aspirin [[place] Aspirin EC] 81 mg PO DAILY 12/19/21 12/25/21 Empagliflozin [Jardiance] 10 mg PO DAILY 12/19/21 12/25/21 Meclizine [Antivert] 25 mg PO Q6H #20 tablet 08/23/22 - Allergies Allergies/Adverse Reactions: Allergies Allergy/AdvReac Type Severity Reaction Status Date / Time No Known Drug Allergies Allergy Verified 08/23/22 10:27 - Social History Does the pt smoke?: No Smoking Status: Never smoker Does the pt drink ETOH?: No Does the pt have substance abuse?: No - POLST Patient has POLST: No PD ED PE NORMAL - General General: Alert and oriented X 3, No acute distress - HEENT HEENT: Atraumatic, PERRL (No nystagmus elicited), EOMI, Moist mucous membranes, Pharynx benign. No: Ears normal (Cerumen impaction in both ears) - Neck Neck: Supple, no meningeal sign, No adenopathy - Cardiac Cardiac: RRR, No murmur - Respiratory Respiratory: No respiratory distress, Clear bilaterally - Abdomen Abdomen: Normal bowel sounds, Soft - Back Back: No CVA TTP - Derm Derm: Normal color, Warm and dry, No rash - Extremities Extremities: No deformity, No tenderness to palpate, Normal ROM s pain - Neuro Neuro: Alert and oriented X 3, wire roller 2-12 intact, No motor deficit, No sensory deficit, Normal speech, Other (normal gait, normal finger nose) Eye Opening: Spontaneous Motor: Obeys Commands Verbal: Oriented GCS Score: 15 Results - Vitals Vitals: Vital Signs - 24 hr 08/23/22 08/23/22 10:25 12:27 Temperature 36.3 C L Heart Rate 77 83 Respiratory 16 18 Rate Blood Pressure 190/80 H 134/62 H O2 Saturation 98 96 Oxygen O2 Source Room air - Labs Labs: Laboratory Tests 08/23/22 08/23/22 08/23/22 10:38 10:38 13:03 WBC 5.9 RBC 4.15 L Hgb 12.6 Hct 39.2 MCV 94.5 MCH 30.4 MCHC 32.1 RDW 12.9 Plt Count 266 MPV 8.6 Neut # (Auto) 3.5 Lymph # (Auto) 1.8 [place] # (Auto) 0.4 Eos # (Auto) 0.1 Baso # (Auto) 0.0 Absolute Nucleated RBC 0.00 Nucleated RBC % 0.0 Sodium 136 Potassium 4.1 Chloride 102 Carbon Dioxide 23 Anion Gap 11.0 BUN 19 Creatinine 0.5 Estimated GFR (MDRD) 126 Glucose 243 H Calcium 8.8 Total Bilirubin 0.9 AST 18 ALT 16 Alkaline Phosphatase 72 Total Protein 8.0 Albumin 4.2 Globulin 3.8 Albumin/Globulin Ratio 1.1 Lipase 37 Urine Color Urine Clarity Urine pH Ur Specific [place] Urine Protein Urine Glucose (UA) Urine Ketones Urine Occult Blood Urine Nitrite Urine Bilirubin Urine Urobilinogen Ur Leukocyte Esterase Urine RBC Urine WBC Ur Squamous Epith Cells Urine Bacteria Ur Microscopic Review Urine Culture Comments Influenza A (Rapid) Negative Influenza B (Rapid) Negative 08/23/22 13:03 WBC RBC Hgb Hct MCV MCH MCHC RDW Plt Count MPV Neut # (Auto) Lymph # (Auto) [place] # (Auto) Eos # (Auto) Baso # (Auto) Absolute Nucleated RBC Nucleated RBC % Sodium Potassium Chloride Carbon Dioxide Anion Gap BUN Creatinine Estimated GFR (MDRD) Glucose Calcium Total Bilirubin AST ALT Alkaline Phosphatase Total Protein Albumin Globulin Albumin/Globulin Ratio Lipase Urine Color YELLOW Urine Clarity CLEAR Urine pH 6.0 Ur Specific [place] 1.020 Urine Protein NEGATIVE Urine Glucose (UA) 500 H Urine Ketones 15 H Urine Occult Blood TRACE-INTA Urine Nitrite POSITIVE H Urine Bilirubin NEGATIVE Urine Urobilinogen 0.2 (NORMAL) Ur Leukocyte Esterase NEGATIVE Urine RBC 0-5 Urine WBC 0-3 Ur Squamous Epith Cells MOD Squamous H Urine Bacteria Moderate H Ur Microscopic Review INDICATED Urine Culture Comments NOT INDICATED Influenza A (Rapid) Influenza B (Rapid) - Rads (name of study) CT head Radiology: Final report received (No acute intracranial abnormality) CXR Radiology: Final report received (No acute cardiopulmonary abnormality) PD Medical Decision Making - ED course Complexity details: reviewed results, re-evaluated patient, considered differential, d/w patient ED course: 57-year-old Lebanese lady who has a primary language of [place] presents to the emergency department for nausea vomiting and dizziness. Symptoms began yesterday. She has a remote history of vertigo but never such as today. She does endorse that he gets worse when turning her head. On exam she was able to get the dizziness to fatigue by fixating on an object and it appeared to last maybe 20 to 30 seconds. Here in the emergency department I did obtain the history and exam using a toggle lock business services coordinator #[id number]. She had a nonfocal neurological exam and a normal cerebellar exam with gait. She does have a history of diabetes and CBC and electrolytes were obtained. With the exception of hyperglycemia there was no abnormal findings seen on Serum lab work. Given her age I did proceed to do a CT of the head that was nonfocal and unremarkable. She was given some meclizine and Zofran here in the emergency department which resolved her of the nausea and vomiting. She was tolerating sips of clear liquids. She was also given a liter of fluid. I encouraged the patient to use [id number] remedies to help remove the serum impaction from both her ears. Clinically my suspicion for central etiology is rather low given the positional nature as well as the normal cerebellar exam. She is discharged home in stable condition with a prescription for meclizine being sent to the pharmacy. Emergent return precautions were discussed. Departure - Departure Disposition: 01 Home, Self Care Clinical Impression: Vertigo, DM hyperosmolarity type II, uncontrolled Condition: Stable Record reviewed to determine appropriate education?: Yes Instructions: ED Dizziness UKO, Meclizine Prescriptions: Meclizine [Antivert] 25 mg PO Q6H #20 tablet Comments: You came to the emergency department today because you have been having some dizziness and nausea vomiting. Here in the emergency department we did do a CT of your head that did not show any worrisome findings. Your lab work today was normal with the exception of an elevated blood sugar of 243. It is important you continue to take your insulins. Your neurological exam was also normal and you did not appear to be having a stroke. You do have some earwax impacting both of your ears and I would like you to try eurq-uoo-krjqoba Debrox solution to try and remove the cerumen from both your ears. Please stay well-hydrated. I have sent a prescription for meclizine to your pharmacy which can be used to help manage your symptoms. If at any point you have fainting episodes, slurred speech, facial droop or unable to walk then please return to the ER for second evaluation. Please discuss this ED visit with your primary care doctor
--- NOTE | 2022-08-23 12:12 | XRAY Report ---
PROCEDURE: Chest 1 View X-Ray INDICATIONS: cough TECHNIQUE: One view of the chest was acquired. COMPARISON: Chest radiographs 02/15/2022 FINDINGS: Surgical changes and devices: None. Lungs and pleura: No pleural effusions or pneumothorax. Lungs are clear. Mediastinum: Mediastinal contours appear normal. Heart size is normal. Bones and chest wall: No suspicious bony lesions. Overlying soft tissues appear unremarkable. IMPRESSION: No acute cardiopulmonary abnormality. Reviewed by: Mati Middleton MD on 08/23/2022 12:11 PM PST Approved by: Mati Middleton MD on 08/23/2022 12:11 PM PST Station ID: [id number]
--- NOTE | 2022-08-23 12:23 | CT Report ---
PROCEDURE: HEAD WO INDICATIONS: dizzy, vomiting TECHNIQUE: Noncontrast 4.5 mm thick angled axial sections acquired from the foramen magnum to the vertex. For r adiation dose reduction, the following was used: automated exposure control, adjustment of mA and/or kV according to patient size. COMPARISON: None. FINDINGS: Image quality: Excellent. CSF spaces: Basal cisterns are patent. No extra-axial fluid collections. Ventricles are normal in size and shape. Brain: No midline shift. No intracranial masses or hemorrhage. Basal ganglia calcifications bilater ally. [place]-white matter interface is normal. Skull and face: Calvarium and visualized facial bones are intact, without suspicious lesions. Sinuses: Mucosal thickening at the maxillary sinuses, right sphenoid sinus, and ethmoid sinuses. Mast oids are clear. IMPRESSION: No acute intracranial abnormality. Sinusitis. Reviewed by: Mike Burrows MD on 08/23/2022 12:22 PM PST Approved by: Mike Burrows MD on 08/23/2022 12:22 PM PST Station ID: [id number]
[2022-08-23 13:10] LABS: BILIRUBIN,URINE NEGATIVE (NEGATIVE); GLUCOSE, URINE (UA) 500 mg/dL (NEGATIVE); KETONES,URINE (UA) 15 mg/dL (NEGATIVE); LEUKOCYTE ESTERASE, URINE NEGATIVE (NEGATIVE); NITRITE,URINE POSITIVE (NEGATIVE); OCCULT BLOOD,URINE TRACE-INTA (NEGATIVE); PROTEIN,URINE NEGATIVE (NEGATIVE); UROBILINOGEN,URINE 0.2 (NORMAL) E.U./dL (NORMAL)
[2022-08-23 13:13] LABS: CLARITY,URINE CLEAR (CLEAR)
[2022-08-23 13:19] LABS: WBC,URINE 0-3 /HPF (0-5)
[2022-08-23 13:20] LABS: BACTERIA,URINE Moderate /HPF (None Seen); RBC,URINE 0-5 /HPF (0-5); SQUAMOUS EPITHELIAL CELL,UR MOD Squamous (<= Few)
[2022-08-23 15:09] VITALS: BP 126/58
== END 2022-08-23 15:10 | disposition home or self-care (01) ==
LOC: ED 10:11
DX: R42 Dizziness and giddiness (principal); E11.65 Type 2 diabetes mellitus with hyperglycemia; Z79.4 Long term (current) use of insulin; H61.23 Impacted cerumen, bilateral; I10 Essential (primary) hypertension; E78.00 Pure hypercholesterolemia, unspecified
CPT/HCPCS: 36415; 70450; 71045; 80053; 81001; 83690; 85025; 87275; 87276; 96361; 96374; 99283; 99284; A9270; Q0162; 81003; 87086

== ENCOUNTER 2022-10-19 10:29 | Outpatient (CLI) | payer MEDICAID ==
[2022-10-19 19:05] LABS: ESTIMATED AVERAGE GLUCOSE 200 mg/dL (70-100); HEMOGLOBIN A1c% 8.6 % (4.27-6.07)
== END 2022-10-19 10:30 | disposition home or self-care (01) ==
LOC: LAB.N 10:29
PROVIDERS: ATTEND Nurse Practitioner
DX: E11.65 Type 2 diabetes mellitus with hyperglycemia (principal)
CPT/HCPCS: 36415; 83036

== ENCOUNTER 2023-01-31 09:44 | Outpatient (CLI) | payer MEDICAID ==
[2023-01-31 12:47] LABS: BASOPHILS # (AUTO) 0.1 10^3/uL (0.0-0.1); BASOPHILS % (AUTO) 1.1 %; EOSINOPHILS # (AUTO) 0.5 10^3/uL (0.0-0.7); EOSINOPHILS % (AUTO) 8.1 %; HCT - HEMATOCRIT 42.4 % (37.0-47.0); HGB - HEMOGLOBIN 13.9 g/dL (12.0-16.0); LYMPHOCYTES # (AUTO) 2.3 10^3/uL (1.5-3.5); LYMPHOCYTES % (AUTO) 35.8 %; MEAN CORPUSCULAR HEMOGLOBIN 31.4 pg (27.0-31.0); MEAN CORPUSCULAR HGB CONC 32.8 g/dL (32.0-36.0); MEAN CORPUSCULAR VOLUME 95.7 fL (81.0-99.0); MONOCYTES # (AUTO) 0.7 10^3/uL (0.0-1.0); MONOCYTES % (AUTO) 10.4 %; NEUTROPHILS # (AUTO) 2.9 10^3/uL (1.5-6.6); NEUTROPHILS % (AUTO) 44.3 %; PLT - PLATELET COUNT 281 10^3/uL (130-450); RED BLOOD COUNT 4.43 10^6/uL (4.20-5.40); RED CELL DISTRIBUTION WIDTH 12.8 % (12.0-15.0); WHITE BLOOD COUNT 6.5 x10^3/uL (4.8-10.8)
[2023-01-31 13:09] LABS: ALBUMIN 4.3 g/dL (3.2-5.5); ALBUMIN/GLOBULIN RATIO 1.1 (1.0-2.2); ALKALINE PHOSPHATASE 94 IU/L (42-121); ALT ALANINE AMINOTRANSFERASE 21 IU/L (10-60); AST ASPARTATE AMINOTRANSFERASE 23 IU/L (10-42); BILIRUBIN,TOTAL 0.5 mg/dL (0.2-1.0); BUN - BLOOD UREA NITROGEN 23 mg/dL (6-20); CALCIUM 8.9 mg/dL (8.5-10.3); CARBON DIOXIDE - CO2 21 mmol/L (21-32); CHLORIDE 104 mmol/L (101-111); CHOL/HDL RATIO 3.4 (<4.4); CHOLESTEROL 160 mg/dL; CREATININE 0.6 mg/dL (0.4-1.0); GFR - MDRD 102 (>89); GLUCOSE 183 mg/dL (70-100); HDL CHOLESTEROL 47 mg/dL; LDL CHOLESTEROL,CALCULATED 51 mg/dL; LDL/HDL RATIO 1.1 (<4.4); POTASSIUM 4.2 mmol/L (3.5-5.0); SODIUM 139 mmol/L (135-145); TOTAL PROTEIN 8.2 g/dL (6.7-8.2); TRIGLYCERIDES 311 mg/dL; VLDL CHOLESTEROL 62 mg/dL
[2023-01-31 13:29] LABS: ESTIMATED AVERAGE GLUCOSE 177 mg/dL (70-100); HEMOGLOBIN A1c% 7.8 % (4.27-6.07)
[2023-01-31 13:32] LABS: THYROID STIMULATING HORMONE 0.01 uIU/mL (0.34-5.60)
[2023-01-31 15:06] LABS: FREE T4 (FREE THYROXINE) 1.45 ng/dL (0.58-1.64)
== END 2023-01-31 09:45 | disposition home or self-care (01) ==
LOC: LAB.N 09:44
PROVIDERS: ATTEND Registered Nurse
DX: I10 Essential (primary) hypertension (principal); E11.9 Type 2 diabetes mellitus without complications; Z13.220 Encounter for screening for lipoid disorders
CPT/HCPCS: 36415; 80053; 80061; 83036; 83721; 84439; 84443; 85025

== ENCOUNTER 2023-04-07 09:46 | Outpatient (CLI) | payer MEDICAID ==
[2023-04-07 13:17] LABS: THYROID STIMULATING HORMONE 0.02 uIU/mL (0.34-5.60)
== END 2023-04-07 09:47 | disposition home or self-care (01) ==
LOC: LAB.N 09:46
PROVIDERS: ATTEND Registered Nurse
DX: R94.6 Abnormal results of thyroid function studies (principal)
CPT/HCPCS: 36415; 84436; 84443; 84480

== ENCOUNTER 2023-06-02 09:20 | Outpatient (CLI) | payer MEDICAID ==
[2023-06-02 12:55] LABS: THYROID STIMULATING HORMONE 0.03 uIU/mL (0.34-5.60)
== END 2023-06-02 09:21 | disposition home or self-care (01) ==
LOC: LAB.N 09:20
PROVIDERS: ATTEND Registered Nurse
DX: R94.6 Abnormal results of thyroid function studies (principal)
CPT/HCPCS: 36415; 84436; 84439; 84443; 84480; 84481

== ENCOUNTER 2023-07-12 09:54 | Outpatient (CLI) | payer MEDICAID ==
[2023-07-12 19:15] LABS: CREATININE,URINE 60.1 mg/dL; MICROALBUM/CREATININE RATIO,UR 26.6 ug/mg (<30.0); MICROALBUMIN,URINE 1.6 mg/dL
[2023-07-12 19:18] LABS: ALBUMIN 4.5 g/dL (3.2-5.5); ALBUMIN/GLOBULIN RATIO 1.5 (1.0-2.2); ALKALINE PHOSPHATASE 90 IU/L (42-121); ALT ALANINE AMINOTRANSFERASE 13 IU/L (10-60); AST ASPARTATE AMINOTRANSFERASE 14 IU/L (10-42); BILIRUBIN,TOTAL 0.6 mg/dL (0.2-1.0); BUN - BLOOD UREA NITROGEN 16 mg/dL (6-20); CALCIUM 9.2 mg/dL (8.5-10.3); CARBON DIOXIDE - CO2 24 mmol/L (21-32); CHLORIDE 106 mmol/L (101-111); CHOL/HDL RATIO 3.6 (<4.4); CHOLESTEROL 183 mg/dL; CREATININE 0.5 mg/dL (0.6-1.3); GFR - MDRD 126 (>89); GLUCOSE 131 mg/dL (74-104); HDL CHOLESTEROL 51 mg/dL; LDL CHOLESTEROL,CALCULATED 76 mg/dL; LDL/HDL RATIO 1.5 (<4.4); POTASSIUM 4.1 mmol/L (3.5-4.5); SODIUM 138 mmol/L (135-145); TOTAL PROTEIN 7.6 g/dL (6.4-8.9); TRIGLYCERIDES 279 mg/dL (48-352); VLDL CHOLESTEROL 56 mg/dL
[2023-07-12 19:29] LABS: THYROID STIMULATING HORMONE 0.69 uIU/mL (0.34-5.60)
[2023-07-14 07:57] LABS: ESTIMATED AVERAGE GLUCOSE 174 mg/dL (70-100); HEMOGLOBIN A1c% 7.7 % (4.27-6.07)
== END 2023-07-12 09:55 | disposition home or self-care (01) ==
LOC: LAB.N 09:54
PROVIDERS: ATTEND Nurse Practitioner
DX: E11.65 Type 2 diabetes mellitus with hyperglycemia (principal); E78.2 Mixed hyperlipidemia
CPT/HCPCS: 36415; 80053; 80061; 82043; 82570; 83036; 83721; 84443

== ENCOUNTER 2023-09-21 20:27 | Emergency (ER) | payer MEDICAID ==
[2023-09-21] MEDS ORDERED: ONDANSETRON 4 MG/2 ML VIAL IVP STA (21:03)
[2023-09-21] MEDS ORDERED: SODIUM CHLORIDE 0.9% 1,000 ML IV STA (21:03)
--- NOTE | 2023-09-21 21:04 | ED Physician Documentation ---
History of Present Illness - Stated complaint Stated Complaint: LOW BLOOD SUGAR/VOMIT - Chief complaint Chief Complaint: Abd Pain - History obtained from History obtained from: Patient - History of Present Illness Timing: Today - Additonal information Additional information: 58-year-old Stephan Simpson has developed abdominal pain nausea and vomiting this afternoon after taking medication for tooth ache. She developed low blood sugar and became concerned because she continued to vomit. At the time of my evaluation her abdominal pain has resolved but she continues to feel nauseated. I reviewed her medication summary from pharmacies and discovered that she has been placed on amoxicillin 875 and hydrocodone.The patient indicates that her tooth ache is improved and she does not have illness otherwise. Review of Systems Constitutional: denies: Fever Eyes: denies: Decreased vision Ears: denies: Ear pain Throat: reports: Dental pain / toothache Cardiac: denies: Chest pain / pressure Respiratory: denies: Cough GI: reports: Abdominal Pain, Nausea, Vomiting PD PAST MEDICAL HISTORY - Past Medical History Past Medical History: Yes Cardiovascular: Hypertension, High cholesterol Endocrine/Autoimmune: Type 2 diabetes GI: GERD, Ulcers - Past Surgical History Past Surgical History: Yes General: EGD - Present Medications Home Medications: Ambulatory Orders Medication Instructions Recorded Confirmed Insulin Aspart [NovoLOG] 18 units SQ TID 11/10/21 12/25/21 Insulin Glargine,Hum.rec.anlog 45 unit SUBQ DAILY PM 11/10/21 12/25/21 [Basaglar Kwikpen U-100] Lisinopril [Zestril] 20 mg PO DAILY 11/10/21 12/19/21 Propranolol [Inderal] 40 mg PO DAILY 11/10/21 12/25/21 Rosuvastatin Calcium [Crestor] 20 mg PO DAILY 11/10/21 12/25/21 Aspirin [[place] Aspirin EC] 81 mg PO DAILY 12/19/21 12/25/21 Empagliflozin [Jardiance] 10 mg PO DAILY 12/19/21 12/25/21 Meclizine [Antivert] 25 mg PO Q6H #20 tablet 08/23/22 Ondansetron Odt [Zofran] 4 mg TL Q6H PRN #10 tablet 09/21/23 - Allergies Allergies/Adverse Reactions: Allergies Allergy/AdvReac Type Severity Reaction Status Date / Time No Known Drug Allergies Allergy Verified 09/21/23 22:21 - Social History Does the pt smoke?: No Smoking Status: Never smoker Does the pt drink ETOH?: No Does the pt have substance abuse?: No - Immunizations Immunizations are current?: No Immunizations: TDAP >10years/unknown - POLST Patient has POLST: No PD ED PE NORMAL - Vitals Vital signs reviewed: Yes (hypertensive ) - General General: Alert and oriented X 3, No acute distress, Well developed/nourished - HEENT HEENT: Atraumatic, PERRL, EOMI, Ears normal - Neck Neck: Supple, no meningeal sign, No bony TTP - Cardiac Cardiac: RRR, No murmur - Respiratory Respiratory: No respiratory distress, Clear bilaterally - Abdomen Abdomen: Normal bowel sounds, Soft, Non tender, Non distended, No organomegaly - Back Back: No CVA TTP, No spinal TTP - Derm Derm: Normal color, Warm and dry, No rash - Extremities Extremities: No deformity, No edema - Neuro Neuro: Alert and oriented X 3, wrapper cashier 2-12 intact, No motor deficit, No sensory deficit, Normal speech Eye Opening: Spontaneous Motor: Obeys Commands Verbal: Oriented GCS Score: 15 - Psych Psych: Normal mood, Normal affect Results - Vitals Vitals: Vital Signs - 24 hr 09/21/23 09/21/23 09/21/23 20:30 22:33 23:56 Temperature 36.1 C L 36.2 C L Heart Rate 62 94 67 Respiratory 18 13 13 Rate Blood Pressure 129/93 H 114/74 127/67 O2 Saturation 97 96 98 Oxygen O2 Source Room air - Labs Labs: Laboratory Tests 09/21/23 09/21/23 09/21/23 20:36 21:22 21:22 WBC 6.6 RBC 4.20 Hgb 13.7 Hct 40.3 MCV 96.0 MCH 32.6 H MCHC 34.0 RDW 12.7 Plt Count 274 MPV 8.9 Neut # (Auto) 4.9 Lymph # (Auto) 1.4 L [place] # (Auto) 0.2 Eos # (Auto) 0.0 Baso # (Auto) 0.1 Absolute Nucleated RBC 0.00 Nucleated RBC % 0.0 Sodium 137 Potassium 3.8 Chloride 103 Carbon Dioxide 22 Anion Gap 12.0 BUN 21 H Creatinine 0.5 L Estimated GFR (MDRD) 126 Glucose 91 POC Whole Bld Glucose 81 Calcium 9.3 Total Bilirubin 0.6 AST 14 ALT 13 Alkaline Phosphatase 80 Total Protein 7.8 Albumin 4.5 Globulin 3.3 Albumin/Globulin Ratio 1.4 Lipase 27 Urine Color Urine Clarity Urine pH Ur Specific [place] Urine Protein Urine Glucose (UA) Urine Ketones Urine Occult Blood Urine Nitrite Urine Bilirubin Urine Urobilinogen Ur Leukocyte Esterase Urine RBC Urine WBC Ur Squamous Epith Cells Urine Bacteria Ur Microscopic Review Urine Culture Comments 09/21/23 09/21/23 09/21/23 21:24 22:40 23:49 WBC RBC Hgb Hct MCV MCH MCHC RDW Plt Count MPV Neut # (Auto) Lymph # (Auto) [place] # (Auto) Eos # (Auto) Baso # (Auto) Absolute Nucleated RBC Nucleated RBC % Sodium Potassium Chloride Carbon Dioxide Anion Gap BUN Creatinine Estimated GFR (MDRD) Glucose POC Whole Bld Glucose 66 L 170 H Calcium Total Bilirubin AST ALT Alkaline Phosphatase Total Protein Albumin Globulin Albumin/Globulin Ratio Lipase Urine Color YELLOW Urine Clarity HAZY Urine pH 6.5 Ur Specific [place] 1.025 Urine Protein 30 H Urine Glucose (UA) 500 H Urine Ketones NEGATIVE Urine Occult Blood SMALL H Urine Nitrite NEGATIVE Urine Bilirubin NEGATIVE Urine Urobilinogen 0.2 (NORMAL) Ur Leukocyte Esterase NEGATIVE Urine RBC 6-10 H Urine WBC 4-5 Ur Squamous Epith Cells MOD Squamous H Urine Bacteria None Seen Ur Microscopic Review INDICATED Urine Culture Comments NOT INDICATED Procedures - IVC sono (time) 2100 Bedside IVC sono: IVC measures (cm) (0.9), Dehydration (est 1+ liter deficit) PD Medical Decision Making - ED course Complexity details: reviewed results, re-evaluated patient, considered differential, d/w patient, d/w family Reviewed Lab Results: We reviewed a complete blood count showing a normal white blood cell count normal hemoglobin hematocrit and platelets with normal indices chemistries showed normal electrolytes normal liver function and BUN of 21 with creatinine of 0.5. Urinalysis showed small occult blood 6-10 red blood cells per high-p owered field specific gravity 1.025. My review of these laboratory tests indicate the patient is likely dehydrated with BUN to creatinine ratio higher than normal and a high's urine specific gravity. ED course: This 58-year-old diabetic female presents with concerns of low blood sugar and abdominal pain and vomiting. She has taken some hydrocodone and I suspect this is the reason for her nausea and vomiting which is now resolved. She was administered intravenous fluids after interrogation of the IVC with POCUS indicated dehydration. She had laboratory confirmation of the dehydration including BUN to creatinine ratio elevated as well as high urine specific gravity. She was treated with intravenous saline. She continued to have low blood sugar and was administered one half amp of D50. Departure - Departure Disposition: 01 Home, Self Care Clinical Impression: Dehydration Gastritis Qualifiers: Gastritis type: other gastritis Chronicity: acute Gastritis bleeding: without bleeding Qualified Code(s): K29.00 - Acute gastritis without bleeding Condition: Stable Instructions: ED Dehydration, ED Gastritis Follow-Up: Germaine Villeda ARNP [Primary Care Provider] - Prescriptions: Ondansetron Odt [Zofran] 4 mg TL Q6H PRN #10 tablet PRN Reason: Nausea / Vomiting Comments: Stephan, today it looks like you developed abdominal pain and vomiting from the hydrocodone that was prescribed to you for pain control. My recommendation is to not take this medication again. We have E scribed some Zofran (nausea medication) for your use to the [facility] in [place]. We have dispensed some Zofran to you for use tonight if necessary. Medication may not be necessary as the effects of the hydrocodone should wear off this evening. We did find that you were dehydrated today and have provided some intravenous fluid. We found your sugar was low and provided intravenous sugar as well. Check your sugars frequently and if you continue to run low sugars consume sugar containing foods. The expectation today is that your symptoms resolve completely before morning. Discharge Date/Time: 09/21/23 23:56
[2023-09-21 21:30] LABS: BASOPHILS # (AUTO) 0.1 10^3/uL (0.0-0.1); BASOPHILS % (AUTO) 0.9 %; EOSINOPHILS % (AUTO) 0.5 %; HCT - HEMATOCRIT 40.3 % (37.0-47.0); HGB - HEMOGLOBIN 13.7 g/dL (12.0-16.0); LYMPHOCYTES # (AUTO) 1.4 10^3/uL (1.5-3.5); LYMPHOCYTES % (AUTO) 20.6 %; MEAN CORPUSCULAR HEMOGLOBIN 32.6 pg (27.0-31.0); MEAN PLATELET VOLUME 8.9 fL (7.9-10.8); MONOCYTES # (AUTO) 0.2 10^3/uL (0.0-1.0); MONOCYTES % (AUTO) 3.3 %; NEUTROPHILS # (AUTO) 4.9 10^3/uL (1.5-6.6); NEUTROPHILS % (AUTO) 74.2 %; PLT - PLATELET COUNT 274 10^3/uL (130-450); RED CELL DISTRIBUTION WIDTH 12.7 % (12.0-15.0); WHITE BLOOD COUNT 6.6 x10^3/uL (4.8-10.8)
[2023-09-21 21:43] LABS: ALBUMIN 4.5 g/dL (3.2-5.5); ALBUMIN/GLOBULIN RATIO 1.4 (1.0-2.2); BILIRUBIN,TOTAL 0.6 mg/dL (0.2-1.0); CALCIUM 9.3 mg/dL (8.5-10.3); CREATININE 0.5 mg/dL (0.6-1.3); POTASSIUM 3.8 mmol/L (3.5-4.5); TOTAL PROTEIN 7.8 g/dL (6.4-8.9)
[2023-09-21 21:47] LABS: BILIRUBIN,URINE NEGATIVE (NEGATIVE); GLUCOSE, URINE (UA) 500 mg/dL (NEGATIVE); KETONES,URINE (UA) NEGATIVE (NEGATIVE); LEUKOCYTE ESTERASE, URINE NEGATIVE (NEGATIVE); NITRITE,URINE NEGATIVE (NEGATIVE); OCCULT BLOOD,URINE SMALL (NEGATIVE); PH,URINE 6.5 PH (5.0-7.5); PROTEIN,URINE 30 mg/dL (NEGATIVE); UROBILINOGEN,URINE 0.2 (NORMAL) E.U./dL (NORMAL)
[2023-09-21 22:11] LABS: CLARITY,URINE HAZY (CLEAR)
[2023-09-21 22:12] LABS: BACTERIA,URINE None Seen /HPF (None Seen); SQUAMOUS EPITHELIAL CELL,UR MOD Squamous (<= Few)
[2023-09-21] MEDS ORDERED: DEXTROSE 50% ABBOJECT 25 GM/50 ML SYRINGE IVP STA (22:47)
[2023-09-21] MEDS ORDERED: ONDANSETRON ODT 4 MG Prepack 2 TL PRN (23:38)
[2023-09-21 23:58] VITALS: BP 127/67; O2SAT 98
== END 2023-09-21 23:56 | disposition home or self-care (01) ==
LOC: ED 20:27
DX: K29.00 Acute gastritis without bleeding (principal); E86.0 Dehydration; I10 Essential (primary) hypertension; E11.9 Type 2 diabetes mellitus without complications; E78.00 Pure hypercholesterolemia, unspecified; K21.9 Gastro-esophageal reflux disease without esophagitis; Z79.4 Long term (current) use of insulin; Z79.82 Long term (current) use of aspirin; Z79.84 Long term (current) use of oral hypoglycemic drugs
CPT/HCPCS: 36415; 80053; 81001; 81003; 83690; 85025; 87086; 96361; 96374; 96375; 99284

== ENCOUNTER 2024-02-14 09:45 | Outpatient (CLI) | payer BC ==
[2024-02-14 18:18] LABS: BASOPHILS # (AUTO) 0.1 10^3/uL (0.0-0.1); BASOPHILS % (AUTO) 1.1 %; EOSINOPHILS # (AUTO) 0.4 10^3/uL (0.0-0.7); EOSINOPHILS % (AUTO) 6.1 %; HCT - HEMATOCRIT 44.4 % (37.0-47.0); HGB - HEMOGLOBIN 14.1 g/dL (12.0-16.0); LYMPHOCYTES # (AUTO) 2.4 10^3/uL (1.5-3.5); LYMPHOCYTES % (AUTO) 38.6 %; MEAN CORPUSCULAR HEMOGLOBIN 31.8 pg (27.0-31.0); MEAN CORPUSCULAR HGB CONC 31.8 g/dL (32.0-36.0); MEAN CORPUSCULAR VOLUME 100.2 fL (81.0-99.0); MEAN PLATELET VOLUME 9.1 fL (7.9-10.8); MONOCYTES # (AUTO) 0.6 10^3/uL (0.0-1.0); MONOCYTES % (AUTO) 10.3 %; NEUTROPHILS # (AUTO) 2.7 10^3/uL (1.5-6.6); NEUTROPHILS % (AUTO) 43.7 %; PLT - PLATELET COUNT 298 10^3/uL (130-450); RED BLOOD COUNT 4.43 10^6/uL (4.20-5.40); RED CELL DISTRIBUTION WIDTH 12.6 % (12.0-15.0); WHITE BLOOD COUNT 6.2 x10^3/uL (4.8-10.8)
[2024-02-14 18:47] LABS: ALBUMIN 4.5 g/dL (3.2-5.5); ALBUMIN/GLOBULIN RATIO 1.3 (1.0-2.2); ALKALINE PHOSPHATASE 98 IU/L (42-121); ALT ALANINE AMINOTRANSFERASE 14 IU/L (10-60); AST ASPARTATE AMINOTRANSFERASE 15 IU/L (10-42); BILIRUBIN,TOTAL 0.6 mg/dL (0.2-1.0); BUN - BLOOD UREA NITROGEN 17 mg/dL (6-20); CALCIUM 9.5 mg/dL (8.5-10.3); CARBON DIOXIDE - CO2 26 mmol/L (21-32); CHLORIDE 105 mmol/L (101-111); CHOL/HDL RATIO 3.3 (<4.4); CHOLESTEROL 156 mg/dL; CREATININE 0.6 mg/dL (0.6-1.3); GFR - MDRD 102 (>89); GLUCOSE 152 mg/dL (74-104); HDL CHOLESTEROL 47 mg/dL; LDL CHOLESTEROL,CALCULATED 73 mg/dL; LDL/HDL RATIO 1.6 (<4.4); POTASSIUM 4.2 mmol/L (3.5-4.5); SODIUM 139 mmol/L (135-145); TRIGLYCERIDES 182 mg/dL (48-352); VLDL CHOLESTEROL 36 mg/dL
[2024-02-14 18:53] LABS: CREATININE,URINE 56.3 mg/dL; MICROALBUM/CREATININE RATIO,UR 17.8 ug/mg (<30.0)
[2024-02-14 18:58] LABS: THYROID STIMULATING HORMONE 0.05 uIU/mL (0.34-5.60)
[2024-02-14 20:29] LABS: ESTIMATED AVERAGE GLUCOSE 189 mg/dL (70-100); HEMOGLOBIN A1c% 8.2 % (4.27-6.07)
== END 2024-02-14 09:46 | disposition home or self-care (01) ==
LOC: LAB.N 09:45
DX: E11.3513 Type 2 diabetes mellitus with proliferative diabetic retinopathy with macular edema, bilateral (principal)
CPT/HCPCS: 36415; 80053; 80061; 82043; 82570; 83036; 83721; 84439; 84443; 85025

== ENCOUNTER 2024-04-29 10:15 | Outpatient (CLI) | payer BC ==
--- NOTE | 2024-04-29 11:53 | XRAY Report ---
PROCEDURE: Elbow 1-2V RT INDICATIONS: ELBOW PAIN, RIGHT TECHNIQUE: 2 views of the elbow were acquired. COMPARISON: None. FINDINGS: Bones: No fractures or dislocations. No suspicious bony lesions. Soft tissues: No effusion. No suspicious soft tissue calcifications or masses. IMPRESSION: No acute bony abnormality or significant joint effusion. Reviewed by: Cory Deras MD on 04/29/2024 11:51 AM PDT Approved by: Cory Deras MD on 04/29/2024 11:51 AM PDT Station ID: [id number]
== END 2024-04-29 10:30 | disposition home or self-care (01) ==
LOC: DI.N 10:15
PROVIDERS: ATTEND Family Medicine
DX: M25.521 Pain in right elbow (principal)

== ENCOUNTER 2024-05-24 10:03 | Outpatient (CLI) | payer BC ==
[2024-05-24 12:37] LABS: THYROID STIMULATING HORMONE 0.01 uIU/mL (0.34-5.60)
== END 2024-05-24 10:04 | disposition home or self-care (01) ==
LOC: LAB.N 10:03
PROVIDERS: ATTEND Registered Nurse
DX: E05.90 Thyrotoxicosis, unspecified without thyrotoxic crisis or storm (principal)
CPT/HCPCS: 36415; 84436; 84443; 84480